=== PATIENT | male | born 1975 | race Hispanic/Latino ===

== ENCOUNTER 2024-12-29 21:27 | Emergency (ER) | payer SELFPAY ==
[~2024-12-29] VITALS: Ht 165.1 cm; Wt 65.8 kg
[2024-12-29 21:56] LABS: BASOPHILS # (AUTO) 0.07 K/uL (0.00-0.20); BASOPHILS % (AUTO) 0.6 % (0.0-5.0); EOSINOPHILS # (AUTO) 0.14 K/uL (0.00-0.70); EOSINOPHILS % (AUTO) 1.3 % (0.0-8.0); HEMATOCRIT 48.9 % (42-54); IMMATURE GRANULOCYTE ABSOLUTE 0.04 K/uL (0-1); LYMPHOCYTES # (AUTO) 4.3 K/uL (1.0-4.8); LYMPHOCYTES % (AUTO) 39.2 % (21.0-51.0); MEAN CORPUSCULAR HEMOGLOBIN 30.7 pg (27.0-33.0); MEAN CORPUSCULAR HGB CONC 36.6 g/dL (32.0-36.0); MEAN CORPUSCULAR VOLUME 83.7 fL (79-99); MONOCYTES % (AUTO) 8.7 % (3.0-13.0); NEUTROPHILS # (AUTO) 5.4 K/uL (1.8-7.7); NEUTROPHILS % (AUTO) 49.8 % (40.0-77.0); PLATELET COUNT (AUTO) 314 K/uL (130-400); RED BLOOD CELL COUNT(AUTO) 5.84 MIL/uL (4.50-6.20); RED CELL DISTRIBUTION WIDTH 12.1 % (11.0-15.5); WHITE BLOOD COUNT (AUTO) 10.9 K/uL (4.8-10.8)
[2024-12-29 22:03] LABS: CARBON DIOXIDE 29 mmol/L (21-32); CHLORIDE 98 mmol/L (101-111); CREATININE 1.2 mg/dL (0.5-1.3); GLOMERULAR FILTR. RATE CALC 75 mL/min (>90); GLUCOSE,RANDOM 370 mg/dL (70-105); POTASSIUM 3.3 mmol/L (3.5-5.1); SODIUM SERUM 137 mmol/L (136-145); UREA NITROGEN, BLOOD 14 mg/dL (7-18)
[2024-12-29 22:14] LABS: ACETAMINOPHEN < 1 mcg/mL (10-29); ALCOHOL, BLOOD < 3 mg/dL (0-10); SALICYLATE < 2.8 mg/dL (2.8-20.0)
[2024-12-30] MEDS: 0.9% NACL 500ML IV.SOLN 500 ML IV ONE (00:03)
[2024-12-30] MEDS: INSULIN humuLIN R 100 UNIT/ML 3ML SQ ONE ×2 (00:05→03:24)
--- NOTE | 2024-12-30 01:11 | ERN ---
ED Note History of Present Illness Stated Complaint: SENT FROM [place] FOR MEDICAL CLEARANCE Chief Complaint: Medical Clearance Time Seen by MD: 21:41 Dictation: This is a 49-year-old male who was sent from [place] for medical clearance for psychiatric management. Patient admitted to using methamphetamine and presented to behavioral health unit for help. He complained that that he was short of breath and he had tingling of extremities. Last methamphetamine use was 3 days ago. He denied any injury to the neck has been noncompliant with his diabetes Temperature 97.9 pulse 93 respirations 16 blood pressure 158/90 with a pulse oximetry of 98% on room air Allergies: Coded Allergies: No Known Allergies (Unverified Allergy, Unknown, 12/29/24) Past Medical History Past Medical History: Diabetes-Type II, High Cholesterol Surgical History: None Family History: Negative Social History: Drugs (Methamphetamine), ETOH RN Note Reviewed/Agreed w/PFSH: Yes Review of System Dictation Constitutional: Negative for fever,chills, and weight loss Eyes: Negative for injury, pain,redness, and discharge ENT: Negative for injury,pain or swelling Cardiovascular: Negative for chest pain, palpitations, and edema Respiratory: Negative for shortness of breath, cough, and wheezing, Abdomen/GI: Negative for abdominal pain, nausea, vomiting, diarrhea, and constipation Back: Negative for injury and pain : Negative for injury, bleeding and discharge MS/Extremity: Negative for injury and deformity Skin: Negative for rash, and discoloration Neuro: Negative for headache, weakness, numbness, tingling, and seizure Psych: Positive for suicide ideation, denies homicidal ideation, and hallucinations Initial Vital Sign VS Vital Signs Date Time Temp Pulse Resp B/P (MAP) Pulse Ox O2 Delivery O2 Flow Rate FiO2 12/29/24 21:29 97.9 93 16 158/90 96 Room Air 0 12/30/24 04:19 21 Physical Exam Dictation General: awake, alert, NAD resting withdrawn flat affect Head/Face: Normocephalic, atraumatic Eyes: PERRL, EOMI, vision at baseline ENT: oral cavity clear, TMs clear, no signs of infection Neck: Trachea midline, supple, no nuchal rigidity Cardiovascular: RRR, normal S1/S2, No MRGs, no JVD Respiratory: CTAB, no respiratory distress, No rales or wheezes Abdomen: Soft, non-tender, non-distended, normal bowel sounds, no guarding or rebound. Skin: Warm, dry, normal turgor, no rash MS/Extremity: Pulses equal, no cyanosis, neurovascular intact, FROM Neuro: COAx4, GCS 15, strength 5/5, CN 2-12 intact, normal cerebellar exam, normal gait, Extremities-trace edema without any palpable cords, Homans sign is negative Results (Laboratory/Radiology) Laboratory/Radiology Laboratory Tests Test 12/29/24 21:49 12/30/24 01:27 12/30/24 02:34 12/30/24 04:06 White Blood Count 10.9 K/uL (4.8-10.8) H Red Blood Count 5.84 MIL/uL (4.50-6.20) Hemoglobin 17.9 g/dL (14.0-18.0) Hematocrit 48.9 % (42-54) Mean Corpuscular Volume 83.7 fL (79-99) Mean Corpuscular Hemoglobin 30.7 pg (27.0-33.0) Mean Corpuscular Hemoglobin Concent 36.6 g/dL (32.0-36.0) H Red Cell Distribution Width 12.1 % (11.0-15.5) Platelet Count 314 K/uL (130-400) Mean Platelet Volume 10.6 fL (7.5-10.5) H Immature Granulocyte % (Auto) 0.4 % (0-1) Neutrophils (%) (Auto) 49.8 % (40.0-77.0) Lymphocytes (%) (Auto) 39.2 % (21.0-51.0) Monocytes (%) (Auto) 8.7 % (3.0-13.0) Eosinophils (%) (Auto) 1.3 % (0.0-8.0) Basophils (%) (Auto) 0.6 % (0.0-5.0) Neutrophils # (Auto) 5.4 K/uL (1.8-7.7) Lymphocytes # (Auto) 4.3 K/uL (1.0-4.8) Monocytes # (Auto) 1.0 K/uL (0.1-1.0) Eosinophils # (Auto) 0.14 K/uL (0.00-0.70) Basophils # (Auto) 0.07 K/uL (0.00-0.20) Absolute Immature Granulocyte (auto 0.04 K/uL (0-1) Nucleated Red Blood Cells 0.0 % (0.0-0.19) Red Blood Cell Morphology See comments Sodium Level 137 mmol/L (136-145) Potassium Level 3.3 mmol/L (3.5-5.1) L Chloride Level 98 mmol/L (101-111) L Carbon Dioxide Level 29 mmol/L (21-32) Blood Urea Nitrogen 14 mg/dL (7-18) Creatinine 1.2 mg/dL (0.5-1.3) Glomerular Filtration Rate Calc 75 mL/min (>90) Random Glucose 370 mg/dL (70-105) H Total Calcium 9.6 mg/dL (8.5-10.1) Salicylates Level < 2.8 mg/dL (2.8-20.0) L Acetaminophen Level < 1 mcg/mL (10-29) L Serum Alcohol < 3 mg/dL (0-10) Whole Blood Glucose 312 MG/DL (70-110) H 218 MG/DL (70-110) H Urine Opiates Screen NEGATIVE (NEGATIVE) Urine Barbiturates Screen NEGATIVE (NEGATIVE) Urine Phencyclidine Screen NEGATIVE (NEGATIVE) Urine Amphetamines Screen POSITIVE (NEGATIVE) H Urine Benzodiazepines Screen NEGATIVE (NEGATIVE) Urine Cocaine Screen NEGATIVE (NEGATIVE) Urine Marijuana (THC) Screen NEGATIVE (NEGATIVE) Labs Reviewed?: Yes ED Course ED Course Orders Procedure Category Date Status Time Cbc With Differential LAB 12/29/24 Complete 21:30 Basic Metabolic Panel LAB 12/29/24 Complete 21:30 Alcohol, Blood LAB 12/29/24 Complete 21:30 Acetaminophen LAB 12/29/24 Complete 21:30 Salicylate LAB 12/29/24 Complete 21:30 0.9% Nacl 500ml PHA 12/29/24 Complete Iv.Soln (Ns 500ml 22:30 Insulin Regular, PHA 12/29/24 Complete Human 3ml (Humulin R 22:30 Drug Screen Urine LAB 12/29/24 Complete 22:46 Random Accucheck At CPOE 12/30/24 Transmitted Bedside 01:07 Insulin Regular, PHA 12/30/24 Complete Human 3ml (Humulin R 02:30 Current Medications Medications (Trade) Dose Ordered Sig/Huhg Route PRN Reason Start Time Stop Time Status Last Admin Dose Admin Insulin Human Regular (humuLIN R 100 UNIT/ML 3ML) 10 unit ONCE ONCE SQ 12/29/24 22:30 12/29/24 23:43 DC 12/30/24 00:05 Insulin Human Regular (humuLIN R 100 UNIT/ML 3ML) 10 unit ONCE ONCE SQ 12/30/24 02:30 12/30/24 02:31 DC 12/30/24 03:24 Sodium Chloride 500 ml @ 0 mls/hr ONCE ONCE IV 12/29/24 22:30 12/29/24 23:43 DC 12/30/24 00:03 Vital Signs Date Time Temp Pulse Resp B/P (MAP) Pulse Ox O2 Delivery O2 Flow Rate FiO2 12/30/24 04:19 98.1 88 16 142/84 96 Room Air* 0 21 12/29/24 21:29 97.9 93 16 158/90 96 Room Air 0 We will perform diagnostic labs, administer medications according to the patient's complaint. Once the results are available, will review and personally interpreted the labs to rule out any acute life-threatening emergency the trach require immediate intervention and treatment. I will then re-evaluate the patient after treatment and diagnostic exams have return to determine whether the patient requires any further testing, can safely be discharged home or need further admission to hospital for additional treatment and evaluation. Labs reviewed CBC is with a normal limits BNP 7 shows a potassium of 3.3 BUN and creatinine are 14 and 1.2 and glucose of 370 IV hydration and a small dose of insulin Re-evaluate his sugars. 4:09 a.m. patient was observed in the ER with IV hydration and subcu insulin Resting comfortably and repeat Accu-Chek is 219. Patient is medically cleared for psychiatric placement. 6:30 a.m.-patient accepted by [facility] health unit for further management Medical Decision Making MDM MDM: Differential diagnosis: Methamphetamine abuse, anxiety, depression Rationale: Tests considered and ordered secondary to shared decision making include: Previous outside records reviewed: Old ER visits. Risk of complication and/or morbidity or mortality of patient management: None Medications-Per medication reconciliation Need for hospitalization: Patient does not meet criteria for hospitalization. Need for emergency major/minor surgery: No There are no social concerns with this patient. Prescription drug management Prescriptions will include symptomatic care Patient's prior external medical records from other ER visits were reviewed by me as indicated. Prior testing and results from previous visits were reviewed. Prior tests were taken into account with medical decision making and resource utilization, independent historian/historians were used to obtain complete medical history. I independently interpreted the test that were performed, results were reviewed by me and considered findings on radiology if ordered. Medical management and examination interpretation discussions were had by me with other qualified healthcare professionals as indicated for the patient's care. Problem List Problem List: (1) Medical clearance for psychiatric admission (2) Diabetes mellitus with hyperglycemia DX & DISP Disposition: Transfer Departure Impression: Primary Impression: Medical clearance for psychiatric admission Additional Impression: Diabetes mellitus with hyperglycemia Condition: Stable Additional Instructions: Patient and the caregiver have been informed of all the diagnostic tests and the imaging conducted during the today's visit to the emergency room and has verbalized understanding of the results I have personally reviewed and interpreted all diagnostic exams performed here in the ER today as well as the vital signs documented by the nursing staff. The patient is now being discharged to behavioral health unit and should follow up with the primary care physician or the specialist as directed by the ER staff. Patient will be transferred to [facility] behavioral health unit for further management Referrals: SELF,REFERRAL (PCP) SJ MURCIA MD December 30, 2024 01:11
[2024-12-30 02:56] LABS: AMPHET/METH SCREEN,URINE POSITIVE (NEGATIVE); BARBITURATE SCREEN, URINE NEGATIVE (NEGATIVE); BENZODIAZEPINES SCREEN,URINE NEGATIVE (NEGATIVE); CANNABINOID SCREEN,URINE NEGATIVE (NEGATIVE); COCAINE SCREEN,URINE NEGATIVE (NEGATIVE); OPIATE SCREEN,URINE NEGATIVE (NEGATIVE); PHENCYCLIDINE SCREEN,URINE NEGATIVE (NEGATIVE)
--- NOTE | 2024-12-30 04:12 | NUR ---
PATIENT MEDICALLY CLEAR PER Joan LEIGH, SCREENER WITH [facility], SCREENING WAS PERFORMED PRIOR TO PATIENT ARRIVAL TO ER, AWAITING MEDICAL CLEARANCE FOR PLACEMENT. HANNAH TALLEY CONTACTED TO NOTIFY Joan LEIGH OF PATIENT BEING MEDICALLY CLEARED AT THIS TIME.
--- NOTE | 2024-12-30 04:19 | NUR ---
[facility], LABS, H&P TO BE EMAILED, WILL EMAIL COPY OF SCREENING PERFORMED YESTERDAY, PENDING PLACEMENT RECOMMENDATIONS AT THIS TIME.
--- NOTE | 2024-12-30 06:09 | NUR ---
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 [facility] [place] AWARE, PENDING PLACEMENT/SCREENING FROM [facility] [place] [place] AT THIS TIME.
--- NOTE | 2024-12-30 06:31 | NUR ---
ACCEPTANCE SPOKE TO Roxanne [facility]ERRAT[facility], PATIENT HAS BEEN ACCEPTED AT [facility], ACCEPTING PHYSICIAN Rolando ROWELL MD, [facility] KITA DILLARD. PATIENT ACCEPTED AT 05. PATIENT GOING TO ROOM [facility], REPORT CAN BE CALLED TO [phone] OR [phone].
--- NOTE | 2024-12-30 06:40 | NUR ---
ATTEMPTED REPORT NO ANSWER AT [phone], BUSY SIGNAL AT [phone]
--- NOTE | 2024-12-30 06:49 | NUR ---
REPORT GIVEN TO KELLY RODRIGUEZ AT [facility]
--- NOTE | 2024-12-30 08:03 | NUR ---
[id number] ARRIVED TO TRANSPORT PT TO [facility] AND [facility] PROVIDED SECTION FORM. PT A IN NAD, AMBULATING WITHOUT ASSISTANCE, NO IV IN PLACE.
[2024-12-30 08:06] VITALS: BP 139/82; PULSE 81; RESP 18; TEMP 98.2; O2SAT 98
== END 2024-12-30 08:05 ==
LOC: EDH 21:27
DX: E11.65 Type 2 diabetes mellitus with hyperglycemia (principal); E78.00 Pure hypercholesterolemia, unspecified; Z04.6 Encounter for general psychiatric examination, requested by authority
CPT/HCPCS: 99284; 96360; 80048; 80305; 85025; 82948 ×2; 36415; 96372 ×2; J1815 ×2; G0481; J7040